=== PATIENT | female | born 1960 | race Asian ===

== ENCOUNTER 2018-03-11 13:00 | Emergency (ER) | payer OTHER ==
[~2018-03-11] VITALS: Ht 149.9 cm; Wt 56.7 kg
--- NOTE | 2018-03-11 13:10 | NUR ---
Tarik rehman in [facility] - 03/11/18 at 1322 by [email or web address] Report given to Dr Bell.
[2018-03-11 13:14] VITALS: BP_SYST 167
--- NOTE | 2018-03-11 13:18 | NUR ---
Placed in room 01 . Placed on bulk sugar handler, blood pressure machine and pulse oximeter. To gown for exam. Side rails up.
--- NOTE | 2018-03-11 13:19 | NUR ---
Report given to Dr Bell.
--- NOTE | 2018-03-11 13:36 | NUR ---
Dr Bell at bedside examining patient
--- NOTE | 2018-03-11 13:36 | NUR ---
Pt complains of high blood pressure off and on but last night was 205/102 and complains of headache and tingling to mouth and left arm and left thigh. Pt denies tingling at this time, face is symmetrical, no noted droop at this time, no slurring noted. Pt states has had these episodes before and went away, states is not on HTN medication at this time. Denies CP, SOB, n/v or trauma. No other injuries/complaints per pt or noted.
--- NOTE | 2018-03-11 13:43 | NUR ---
Pt went to radiology in stable condition
--- NOTE | 2018-03-11 13:54 | NUR ---
Pt returned from CT in stable condition
--- NOTE | 2018-03-11 14:20 | NUR ---
Pt is resting bed comfortably with no noted distress or discomfort
[2018-03-11] MEDS ORDERED: IBUPROFEN 600 MG TABLET PO ONE (14:45)
[2018-03-11 15:36] VITALS: BP_SYST 147
--- NOTE | 2018-03-11 15:36 | NUR ---
Patient given written and verbal discharge instructions and verbalizes understanding. ER MD discussed with patient the results and treatment provided. Patient in stable condition. ID arm band removed. Rx of benazepril and motrin given. Patient educated on pain management and to follow up with PMD. Pain Scale 3. Opportunity for questions provided and answered.
== END 2018-03-11 15:36 | disposition home or self-care (01) ==
LOC: SED 13:00
DX: I95.9 Hypotension, unspecified (principal); R51 Headache
CPT/HCPCS: 70460-TC; 99284